=== PATIENT | female | born 1965 | race Caucasian/White ===

== ENCOUNTER 2018-01-05 18:11 | Emergency (ER) | payer SELFPAY ==
[~2018-01-05] VITALS: Ht 167.6 cm; Wt 77.3 kg
[2018-01-05 18:17] VITALS: Ht 167.6 cm; Wt 77.3 kg
[2018-01-05] MEDS ORDERED: PREVACID30 MG PO (18:18)
[2018-01-05] MEDS ORDERED: LISINOPRIL10 MG PO (18:19)
[2018-01-05] MEDS ORDERED: TOPROL XL25 MG PO (18:19)
[2018-01-05] MEDS ORDERED: PROAIR HFA8.5 GM INH (18:19)
[2018-01-05] MEDS ORDERED: XANAX0.5 MG PO (18:19)
[2018-01-05] MEDS ORDERED: ZOCOR20 MG PO (18:19)
[2018-01-05] MEDS ORDERED: ULTRAM50 MG PO (19:00)
[2018-01-05 19:35] VITALS: BP 110/62
== END 2018-01-05 19:35 | disposition home or self-care (01) ==
LOC: D.ER 18:11
DX: S63.502A Unspecified sprain of left wrist, initial encounter (principal); W19.XXXA Unspecified fall, initial encounter; Y93.68 Activity, volleyball (beach) (court); Y92.89 Other specified places as the place of occurrence of the external cause; I10 Essential (primary) hypertension; J44.9 Chronic obstructive pulmonary disease, unspecified; J45.909 Unspecified asthma, uncomplicated; F17.200 Nicotine dependence, unspecified, uncomplicated